=== PATIENT | female | born 1985 | race Caucasian/White ===

== ENCOUNTER 2023-09-30 03:58 | Day surgery (SDC) | payer BC, SELFPAY ==
[2023-09-27 15:28] VITALS: BMI 21.9
--- NOTE | 2023-09-27 15:32 | PC.NURSE ---
Report to the Outpatient Waiting Room, entrance under the green pavilion located off [facility], at time 0745 on date 09/30/23. Planned Procedure Time: 0945. Time changes happen often and if your time is changed the preop area will call you the afternoon before. - You and your visitor will be asked to self-screen and do not enter if you have any COVID symptoms. - A mask is optional within the hospital at this time. Patients may have clear liquids (water, carbonated beverages, clear teas, apple juice) until 3 hours prior to surgery with a maximum of 20 ounces. - No food from midnight until time of surgery Take the following medications with a SIP of water the morning of surgery: NONE DO NOT STOP ANY OF YOUR OTHER PRESCRIPTION MEDICATIONS PRIOR TO SURGERY ?EXCEPT THE FOLLOWING Medications to discontinue per physician: VITAMINS Date to take last dose: ALREADY STOPPED Please no make-up, nail belarusian, hairspray, perfume, deodorant, or body powder the day of surgery. No jewelry (including any body piercings) or valuables the day of surgery, leave them at home. Please take a shower or bath the night before, or the morning of, surgery with an antibacterial soap. Wear comfortable, loose fitting clothing. - Jewelry must be removed prior to entering the operating room. Rings and piercings that are not removed may be cut off. - The hospital will not accept responsibility for valuables. - Please leave all valuables, including medications, at home the day of surgery. If you are going home after surgery, a licensed trailer truck driver must drive you home. - NO public transportation without another adult if you receive anesthesia. - We recommend that an adult stay with you for 24 hours following discharge. - We also recommend that you do not drive, make important decision, drink alcoholic beverages, or take any drugs that were not prescribed by your health care provider for at least 24 hours after your discharge time. Follow any additional instructions given to you from your surgeon. If you or anyone in your household have experienced Covid symptoms in the past week, please notify your surgeon or the nurse liaison at the phone number below for possible testing. Telephone instructions given to PT - PRISCILA GUNDERSON and asked if any additional questions and then verbalized understanding. Patient advised to call surgeon office or pre surgery nurse liaison [phone] if any additional questions.
--- NOTE | 2023-09-28 07:58 | PM.IMHP ---
H&P: HPI History of Present Illness Date/Time: 09/28/23 07:58 Chief Complaint: pelvic organ prolapse, incontinence Narrative: this is a 38-year-old woman with a degree of pelvic organ prolapse as well as stress incontinence. She has decided upon surgical intervention Review of Systems Review of Systems: All systems reviewed & are unremarkable except as noted in HPI and below PMFSH Surgical History Surgical History History of hysteroscopy Family History Family History Father Alcohol abuse Cancer Diabetes mellitus Hypertension Grandparent Alcohol abuse Cancer Grandparent Cancer Social History Social History Smoking status: Never smoker Alcohol intake: current Drinks per week: 3 Substance use: never Substance use type: does not use Lack of Transportation: No Lack of Food: Never True Current Housing: I Have Housing Concerned About Future Housing: No Difficulty Paying Gas/Electric Bills: No Difficulty Paying for Meds: No Currently Unemployed: No Education: Master's Degree or Higher Difficulty w/ Childcare or Family Care: No Living arrangements: with family Gender identity (if verbalized by the patient): Female Spiritual care concerns: No Meds Home Medications and Allergies Home Medications Medication Instructions Recorded Confirmed Type multivitamin 1 tablet PO DAILY 06/22/23 09/27/23 History Allergies Allergy/AdvReac Type Severity Reaction Status Date / Time No Known Allergies Allergy Unverified 09/27/23 15:27 Exam Narrative: no acute distress normal breathing alert oriented x3 cystocele to hymenal ring with urethral mobility rectocele to introitus Assessment and Plan Assessment and plan (1) Cystocele with rectocele: Code(s): N81.10 - Cystocele, unspecified; N81.6 - Rectocele Status: Acute (2) WHITNEY (stress urinary incontinence, female): Code(s): N39.3 - Stress incontinence (female) (male) Status: Acute Plan plan for pelvic organ prolapse repair and urethral sling. Understands risks of bleeding, infection, damage to surrounding organs and damage to the urinary tract, vaginal mesh extrusion, urinary tract mesh erosion, obstructive voiding requiring secondary procedure, hip and leg pain, dyspareunia, recurrence of prolapse. We also discussed implications surrounding pelvic organ prolapse repair in young women. She agrees to proceed
[2023-09-30] VITALS (9 sets, daily range): BP systolic 89–124; BP diastolic 53–72; PULSE 50–68; RESP 10–16; TEMP 36.1–36.4; O2SAT 100
--- NOTE | 2023-09-30 07:16 | WPDHPUPDATE1 ---
History and Physical Update Update Date/Time: 09/30/23 07:16 History and Physical has been reviewed, including an updated exam of the patient. There are NO changes in the patient's condition. Risks, benefits, and alternatives have been discussed and questions answered. Patient agrees to proceed with procedure.
[2023-09-30] MEDS: LACTATED RINGERS 1,000 ML 30 ML IV CONT ×2 (08:15→09:39)
[2023-09-30] MEDS: SCOPOLAMINE 1.5 MG PATCH TRANSDERM (08:34)
--- NOTE | 2023-09-30 08:37 | P.PNAN_ITS ---
Anes - Initial Pre Proc Eval Procedure: Operation Date: 09/30/23 09:45 Proposed Procedures p Anterior and Posterior Repair, - Irving Caraballo MD s Urethral Sling - Irving Caraballo MD Date/Time: 09/30/23 08:37 Surgeon: Irving Caraballo MD Pre Op Diagnosis: cystocele with rectocele, stress incont Patient Data Age: 38 Gender: F Height: 1.7 m Weight: 64 kg Last Vital Signs Temp 36.4 C 09/30/23 08:29 Pulse 67 09/30/23 08:29 Resp 16 09/30/23 08:29 BP 124/72 09/30/23 08:29 Pulse Ox 100 09/30/23 08:29 O2 Del Method Room Air 09/30/23 08:29 Allergies Allergy/AdvReac Type Severity Reaction Status Date / Time No Known Allergies Allergy Unverified 09/30/23 08:18 Home Medications Medication Instructions Recorded Confirmed Type multivitamin 1 tablet PO DAILY 06/22/23 09/30/23 History docusate sodium 100 mg capsule 100 mg PO BID #40 caps 09/30/23 Rx (Colace) hydrocodone 5 mg-acetaminophen 325 1 tablet PO Q6H PRN pain #20 tabs 09/30/23 Rx mg tablet Patient hx anesthesia problems: none Family hx anesthesia problems: none Results Review: All pre-operative results and documents have been reviewed as part of the pre- operative evaluation. [facility] Surgical History Surgical History History of hysteroscopy Family History Family History Father Alcohol abuse Cancer Diabetes mellitus Hypertension Grandparent Alcohol abuse Cancer Grandparent Cancer Social History Social History Smoking status: Never smoker Alcohol intake: current Drinks per week: 3 Substance use: never Substance use type: does not use Lack of Transportation: No Lack of Food: Never True Current Housing: I Have Housing Concerned About Future Housing: No Difficulty Paying Gas/Electric Bills: No Difficulty Paying for Meds: No Currently Unemployed: No Education: Master's Degree or Higher Difficulty w/ Childcare or Family Care: No Living arrangements: with family Gender identity (if verbalized by the patient): Female Spiritual care concerns: No Anes - Eval Final PreProcedure Day of Procedure 09/30/23 08:37 Patient weight: normal Heart: regular rate and rhythm Lungs: clear to auscultation Airway: Mallampati scale class II Neurological: alert and oriented Last oral intake: >/= 8 hours ASA classification: II Emergent: no Anesthetic plan: proceed Anesthesia type and monitoring: general LMA and standard monitoring Results Review: All pre-operative results and documents have been reviewed as part of the pre- operative evaluation. Informed Consent: The patient's anesthetic plan and its attendant risks and benefits were discussed with the patient/family/POA. Questions were solicited and answers provided to the satisfaction of the patient/family/POA.
[2023-09-30] MEDS: ceFAZolin 2 GM/D5W 50 ML 2 GM/50 ML BAG IVPB (08:41)
[2023-09-30] MEDS: BUPIVACAINE/EPINEPHRINE 0.5% 50 ML VIAL 30 ML INFILTRATE (09:04)
--- NOTE | 2023-09-30 09:57 | W.PM.PROC2 ---
Procedure Note - Detailed Date of Procedure 09/30/23 Pre-op Diagnosis Rectocele Stress incontinence Post-op Diagnosis Same Procedure Performed Rectocele repair mid urethral sling cystoscopy Surgeon Irving Caraballo MD Anesthesia General Indications This is a female with confirm stress urinary incontinence. She has symptomatic prolapse as well. It is largely a rectocele. She has splinting and stool trapping. she desires surgical correction. She understands the risks of bleeding, infection, injury to the urinary tract, vaginal mesh extrusion, urinary tract mesh erosion, obstructive voiding requiring a secondary procedure, hip and leg pain, dyspareunia, inability to improve overactive bladder symptoms. She agrees to proceed. Description of Procedure She was correctly identified. Informed consent obtained. She was brought the operating room. She was given appropriate anesthesia. She was given appropriate perioperative antibiotics. A time-out performed. I placed Villarreal catheter. I placed a Sterling retractor. Examination revealed no significant cystocele. She had a rectocele just beyond the hymenal ring. I grasped the rectocele with Allis clamps. I infiltrated subcutaneous tissues with local mixed with epinephrine. Made a midline vaginal incision. I dissected out laterally and towards the apex taking great care not to injure the underlying rectum. I then performed a plication rectocele repair. I used interrupted 0 Vicryl sutures. There was excellent reduction of the rectocele. I took great care not to injure underlying rectum. I then trimmed minimal excess vaginal mucosa. I closed the vaginal mucosa with a running 2-0 Vicryl suture. There was excellent hemostasis. No perineal repair was required. No cystocele was required. i marked out the site of the inner thigh incisions. I anesthetized the skin and made those incisions. I anesthetized the anterior vaginal wall over the mid urethra. I made a 1 cm incision. I dissected out laterally taking great care not to injure the refilled vaginal wall. There was some bleeding from the vaginal wall incision. I passed the helical trocars. First on the left. Then on the right. I did this from the thigh incision towards the vaginal incision. The sling was connected to the trocars and brought out through the thigh incision. I tensioned the sling appropriately. I cut and the plastic sheaths. I then closed the incision with 2 0 Vicryl. On cystoscopy there is no tumors or surgical artifact. There was no surgical artifact in the urethra. I cut the excess sling material. Close incisions with glue. She was awakened and transferred to the PACU in stable condition. Implants Urethral sling Estimated Blood Loss -150.0 Drains No Packing No Pathology None sent Complications No immediate complications Condition Stable Disposition PACU
[2023-09-30] MEDS: oxyCODONE HCL (*CRX) 5 MG TAB IR PO ×2 (10:56→12:49)
--- NOTE | 2023-09-30 11:41 | SUR.PHASEII ---
DR. KENT NOTIFIED RE: MODERATELY SATURATED PERIPAD. PATIENT FELT DIZZY IN THE BATHROOM. TRANSPORTED BACK TO ROOM VIA WHEELCHAIR; NOW NO LONGER DIZZY. BP WNL. DR. KENT EN ROUTE TO SEE PATIENT.
--- NOTE | 2023-09-30 11:48 | SUR.PHASEII ---
DR. KENT TO EXAMINE PATIENT. OKAY'D FOR HER TO GO HOME.
[2023-09-30] MEDS: fentaNYL CITRATE INJ (*CRX) 100 MCG/2 ML VIAL 25 MCG IV PUSH (12:01)
== END 2023-09-30 12:50 | disposition home or self-care (01) ==
PROVIDERS: PCP Internal Medicine; Visit Provider Urology
PROC: (CPT 57260; principal; 2023-09-30 09:45)
PROC: (CPT 57250; 2023-09-30 09:45)
DX: N81.6 Rectocele (principal); N39.3 Stress incontinence (female) (male)
CPT/HCPCS: 57250; 57288; A9270; C1771; J0690; J1100; J2250; J2405; J2704; J3010; J7030; J7120

== ENCOUNTER 2024-03-08 08:19 | Outpatient (CLI) | payer BC, SELFPAY ==
[2024-03-08 13:52] LABS: Basophils Percent Auto 0.9 % (0.2-1.2); Eosinophils Absolute Auto 0.1 K/mm3 (0-0.3); Eosinophils Percent Auto 2.3 % (0-4.4); Hematocrit 41.3 % (37.0-47.0); Hemoglobin 13.3 g/dL (12.0-15.0); Immature Granulocyte Absolute 0.01 K/mm3 (0.00-0.031); Immature Granulocyte Percent A 0.2 % (0-0.5); Lymphocytes Absolute Auto 1.42 K/mm3 (0.9-3.2); Lymphocytes Percent Auto 33.3 % (18.3-44.2); Mean Corpuscular HGB Conc 32.2 g/dl (32-36); Mean Corpuscular Hemoglobin 31.1 pg (26-34); Mean Corpuscular Volume 96.5 fl (80-100); Mean Platelet Volume 11.1 fl (7.4-10.4); Monocytes Absolute Auto 0.4 K/mm3 (0.1-0.6); Monocytes Percent Auto 8.2 % (2.6-8.5); Neutrophils Absolute Auto 2.3 K/mm3 (1.3-6.7); Neutrophils Percent Auto 55.1 % (45.5-73.1); Platelet Count Result 219 k/mm3 (150-375); Red Blood Count 4.28 M/mm3 (4.2-5.4); Red Cell Distribution Width 13.2 % (11.5-14.5); White Blood Count 4.3 K/mm3 (4.5-10.0)
[2024-03-08 17:25] LABS: Alanine Aminotransferase 33 U/L (6-35); Albumin Level 4.4 g/dL (3.5-5.1); Alkaline Phosphatase 77 U/L (38-126); Anion Gap 9 mmol/L (4-12); Aspartate Amino Transferase 53 U/L (14-36); Bilirubin,Total 0.7 mg/dL (0.2-1.3); Blood Urea Nitrogen 13 mg/dL (7-17); Calcium 9.4 mg/dL (8.4-10.2); Carbon Dioxide 25 mmol/L (22-30); Chloride 105 mmol/L (98-107); Cholesterol 155 mg/dL (0-200); Estimated Glomerular Filt Rate > 60; Glucose 77 mg/dL (65-110); HDL Direct 77 mg/dL; Potassium 4.3 mmol/L (3.4-5.0); Sodium 139 mmol/L (137-145); Triglycerides 85 mg/dL (<150)
[2024-03-08 17:36] LABS: LDL Cholesterol Direct 67 mg/dL
== END 2024-03-08 08:20 | disposition home or self-care (01) ==
LOC: ANHGOSHLAB 08:20
PROVIDERS: PCP Internal Medicine; Visit Provider Nurse Practitioner
DX: Z13.220 Encounter for screening for lipoid disorders (principal); Z13.228 Encounter for screening for other metabolic disorders
CPT/HCPCS: 36415; 80053; 80061; 85025

== ENCOUNTER 2024-05-31 14:32 | Outpatient (CLI) | payer BC, SELFPAY ==
--- NOTE | ~2024-05-31 | MM_ITS ---
EXAMINATION: MM screening charu BI w flower HISTORY: Screening TECHNIQUE: Craniocaudal and mediolateral oblique 3-D tomosynthesis images were obtained and synthetic 2-D images were generated. CAD analysis was submitted and interpreted. COMPARISON: No prior mammogram is available for comparison at this institution. BREAST PARENCHYMAL COMPOSITION: Dense: The breasts are extremely dense, which lowers the sensitivity of mammography. FINDINGS: There is no evidence of suspicious mass, calcification, or architectural distortion to sugg est malignancy in either breast. There has been no suspicious interval change. IMPRESSION: 1. No mammographic evidence of malignancy. 2. Recommend routine screening mammography in one year. BI-RADS Category 1: Negative Reviewed, dictated and finalized at location B.
== END 2024-05-31 14:33 ==
LOC: MICIMG 14:33
PROVIDERS: PCP Internal Medicine; Visit Provider Obstetrics & Gynecology
DX: Z12.31 Encounter for screening mammogram for malignant neoplasm of breast (principal)
CPT/HCPCS: 77063; 77067

== ENCOUNTER 2025-03-08 08:54 | Outpatient (CLI) | payer BC, SELFPAY ==
[2025-03-08 12:25] LABS: Basophils Absolute Auto 0.1 K/mm3 (0.0-0.1); Eosinophils Absolute Auto 0.2 K/mm3 (0-0.3); Eosinophils Percent Auto 3.7 % (0-4.4); Hematocrit 36.3 % (37.0-47.0); Hemoglobin 11.5 g/dL (12.0-15.0); Immature Granulocyte Absolute 0.01 K/mm3 (0.00-0.031); Immature Granulocyte Percent A 0.2 % (0-0.5); Lymphocytes Absolute Auto 1.49 K/mm3 (0.9-3.2); Lymphocytes Percent Auto 36.5 % (18.3-44.2); Mean Corpuscular HGB Conc 31.7 g/dl (32-36); Mean Corpuscular Hemoglobin 30.7 pg (26-34); Mean Corpuscular Volume 97.1 fl (80-100); Mean Platelet Volume 10.1 fl (7.4-10.4); Monocytes Absolute Auto 0.4 K/mm3 (0.1-0.6); Monocytes Percent Auto 9.6 % (2.6-8.5); Platelet Count Result 251 k/mm3 (150-375); Red Blood Count 3.74 M/mm3 (4.2-5.4); Red Cell Distribution Width 13.3 % (11.5-14.5); White Blood Count 4.1 K/mm3 (4.5-10.0)
[2025-03-08 12:50] LABS: Alanine Aminotransferase 51 U/L (6-35); Albumin Level 4.4 g/dL (3.5-5.1); Alkaline Phosphatase 85 U/L (38-126); Anion Gap 9 mmol/L (4-12); Aspartate Amino Transferase 80 U/L (14-36); Blood Urea Nitrogen 13 mg/dL (7-17); Calcium 8.5 mg/dL (8.4-10.2); Carbon Dioxide 26 mmol/L (22-30); Chloride 99 mmol/L (98-107); Cholesterol 153 mg/dL (0-200); Estimated Glomerular Filt Rate > 60; Glucose 80 mg/dL (65-110); HDL Direct 66 mg/dL; Sodium 134 mmol/L (137-145); Triglycerides 69 mg/dL (<150)
[2025-03-08 13:00] LABS: LDL Cholesterol Direct 53 mg/dL
[2025-03-08 13:04] LABS: Vitamin D 25 Hydroxy 40.4 ng/mL
== END 2025-03-08 08:55 | disposition home or self-care (01) ==
LOC: ANHGOSHLAB 08:55
PROVIDERS: PCP Internal Medicine; Visit Provider Nurse Practitioner
DX: R74.8 Abnormal levels of other serum enzymes (principal); R53.83 Other fatigue; Z13.220 Encounter for screening for lipoid disorders; E55.9 Vitamin D deficiency, unspecified
CPT/HCPCS: 36415; 80053; 80061; 82306; 84443; 85025

== ENCOUNTER 2025-03-13 09:09 | Outpatient (CLI) | payer BC, SELFPAY ==
--- NOTE | ~2025-03-13 | US_ITS ---
EXAM: ABDOMEN ULTRASOUND HISTORY: R74.8 - Abnormal levels of other serum enzymes COMPARISON: None FINDINGS: LIVER: The liver is unremarkable in echogenicity and size. The portal vein is patent, demonstrating hepatopedal flow. The contour of the liver surface is smooth. GALLBLADDER: No stones are identified within the gallbladder, which is otherwise unremarkable. The stones are bulky and mobile. No gallbladder wall thickening or pericholecystic fluid. BILE DUCTS: Common bile duct measures 3.9mm. PANCREAS: Limited evaluation of the pancreas secondary to overlying bowel gas IMPRESSION: Limited evaluation of the pancreas secondary to overlying bowel gas. Otherwise, unremarkable sonographic evaluation of the right upper quadrant, as detailed above. Reviewed, dictated and finalized at location A.
== END 2025-03-13 09:10 | disposition home or self-care (01) ==
PROVIDERS: PCP Nurse Practitioner; Visit Provider Nurse Practitioner
DX: R74.8 Abnormal levels of other serum enzymes (principal)
CPT/HCPCS: 76705

== ENCOUNTER 2025-06-07 08:20 | Outpatient (CLI) | payer BC, SELFPAY ==
--- NOTE | ~2025-06-07 | MM_ITS ---
EXAMINATION: MM screening charu BI w flower HISTORY: Screening mammogram TECHNIQUE: Craniocaudal and mediolateral oblique 3-D tomosynthesis images were obtained and synthetic 2-D images were generated. CAD analysis was submitted and interpreted. COMPARISON: 05/31/2024 BREAST PARENCHYMAL COMPOSITION:Dense: The breasts are extremely dense, which lowers the sensitivity of mammography. FINDINGS: No suspicious mass, calcification, or architectural distortion are identified in either breast to suggest malignancy. There has been no suspicious interval change. IMPRESSION: No mammographic evidence of malignancy. Recommend routine screening mammography in one year. BI-RADS Category 1: Negative Reviewed, dictated and finalized at location .
--- OUTSIDE RECORDS SUMMARY | 2025-06-07 08:24 | XMS_ITS | Clinical Summary ---
Author Organization [facility] Address [address] [place] [id number] Care Team Providers Care Senior Corporate Recruiter Name Role Phone No, Physician Primary Care Provider [phone] Allergies No known active allergies Medications ibuprofen (ADVIL,MOTRIN) 600 mg tablet Take 400 mg by mouth every 6 (six) hours 09/07/2018 Active Colace 100 mg capsule Take 1 capsule (100 mg total) by mouth Active HYDROcodone-cira taminophen (NORCO) 5-325 mg per tablet Take 1 tablet by mouth every 6 (six) hours as needed for pain Active Active Problems No known active problems Family History Medical History Relation Name Comments Cancer Other Diabetes Other Hypertension Other Relation Name Status Comments Other Social History Tobacco Use Types Packs/Day Years Used Date Smoking Tobacco: Never Smokeless Tobacco: Never Tobacco Cessation:Counseling Given: Not Answered AUDIT-C Answer Date Recorded Q1: How often do you have a drink containing alc ohol? 2-3 times a week 04/09/2023 Q2: How many drinks containi ng alcohol do you have on a typical day when you are drinking? 1 or 2 04/09/2023 Q3: How often do you have si x or more drinks on one occasion? Never 04/09/2023 Personal Safety Answer Date Recorded Getting School Help Needed Not on file 10/06 Comments Unknown Sex and Gender Information Value Date Recorded Sex Assigned at Not on file Legal Sex Female 8:28 AM CDT Gender Identity Not on file Sexual Orientation Not on file Obstetrics History Last Filed Vital Signs Vital Sign Reading Time Taken Comments Blood Pressure 127/85 10/06/2023 8:52 AM ASSOCIATE RELATIONS SPECIALIST Pulse 93 10/06/2023 8:52 AM ASSOCIATE RELATIONS SPECIALIST Temperature 36.8 C (98.2 F) 10/06/2023 8:52 AM ASSOCIATE RELATIONS SPECIALIST Respiratory Rate 16 10/06/2023 8:52 AM ASSOCIATE RELATIONS SPECIALIST Oxygen Saturation 100% 10/06/2023 8:52 AM ASSOCIATE RELATIONS SPECIALIST Inhaled Oxygen Concentration - - Weight 66.1 kg (145 lb 11.2 oz) 10/06/2023 8:52 AM ASSOCIATE RELATIONS SPECIALIST Height 171.5 cm (5' 7.52) 10/06/2023 8:52 AM CS T Body Mass Index 22.47 10/06/2023 8:52 AM ASSOCIATE RELATIONS SPECIALIST Plan of Treatment Health Maintenance Due Date Last Done Comments Breast Cancer Screening-Mammogram 1983 Cervical Cancer Screening 1983 Depression Screening 1983 Hepatitis C Screening 1983 Varicella Vaccines (1 of 2 - 13+ 2-dose series) 1996 Hepatitis B Screening 2001 Regular Well Visit/Exam 18-64 2001 HPV Vaccines (1 - 3-dose SCDM series) 2010 Covid-19 Vaccine ( season) 2024 08/17/2021, 01/12/2021, 12/15/2020 Influenza Vaccine (#1) 2025 , 08/06/2019, 07/18/2018, Additional history exists DTaP/Tdap/Td Vaccine (3 - Td or Tdap) 07/06/2028 07/06/2018, 12/01/2015 Pneumococcal vaccine <65 Aged Out No longer eligible based on patient's age to complete this topic Insurance [employer] OOS BLUE ACCESS OOS Care Teams Senior Corporate Recruiter Relationship Specialty Start Date End Date No, Physician PCP - General 04/30/20
--- OUTSIDE RECORDS SUMMARY | 2025-06-07 08:24 | XMS_ITS | Clinical Summary ---
Author Organization [facility] Address [address] [place] [address] Care Team Providers Care Strip Cutter Name Role Phone Unavailable Primary Care Provider Unavailabl e Source Comments [facility],non-owned Affiliates and Associated Physician Practices is amultiple site organization consisting of ambulatory clinics and hospital sitesin [place], [place], [place] and [place]. This disclosure is being madepursuant to the Care Everywhere program and may not contain all information available regarding this patient. Last updated 18.[employer] Allergies No known active allergies Medications * Be aware that medications may not be up to date on this document. Alwaysverify current medications with the patient. No known medications Active Problems Problem Noted Date Diagnosed Date Cystocele with prolapse 04/01/2021 Resolved Problems Problem Noted Date Diagnosed Date Resolved Date Constipation 04/01/2021 04/29/2021 Family History Medical History Relation Name Comments CVA Maternal Grandfather Diabetes - Type 2 Maternal Grandfather Cancer - Breast Maternal Grandmother Depression Paternal Grandfather Relation Name Status Comments Maternal Grandfather Maternal Grandmother Paternal Grandfather Social History Tobacco Use Types Packs/Day Years Used Date Smoking Tobacco: Never Smokeless Tobacco: Never Alcohol Use Standard Drinks/Week Comments Yes 0 (1 standard drink = 0.6 oz pur e alcohol) 4 Comments No Sex and Gender Information Value Date Recorded Sex Assigned at Not on file Legal Sex Female 2:02 PM CDT Gender Identity Not on file Sexual Orientation Not on file Last Filed Vital Signs Vital Sign Reading Time Taken Comments Blood Pressure 120/83 06/18/2022 10:25 AM CDT Pulse 77 06/18/2022 10:25 AM CDT Temperature 36.6 C (97.9 F) 06/18/2022 10:25 AM CDT Respiratory Rate - - Oxygen Saturation 100% 06/18/2022 10: 25 AM CDT Inhaled Oxygen Concentration - - Weight 68.9 kg (151 lb 12.8 oz) 022 10:25 AM CDT Height 172.7 cm (5' 8) 06/18/2022 10:2 5 AM CDT Body Mass Index 23.08 06/18/2022 10:25 AM CDT Plan of Treatment Health Maintenance Due Date Last Done Comments LIPID TESTING 1983 MAMMOGRAM 1983 HIV SCREENING 1998 HEPATITIS C SCREENING 07/19/2001 DTAP/TDAP/TD VACCINES (1 - Tdap) 2002 HEPATITIS B VACCINE (1 of 3 - 19+ 3-dose series) 2002 HPV VACCINE (1 - 3-dose SCDM series) 2010 PAP SMEAR 04/03/2024 04/03/2021 COVID-19 VACCINE (3 - 2023-2 5 season) 2024 01/12/2021, 12/15/2020 DEPRESSION SCREENING 10/17/2024 INFLUENZA VACCINE (#1) 2025 9, 07/18/2018 ZOSTER VACCINE (1 of 2) 2033 HIB VACCINE Aged Out No longer eligi ble based on patient's age to complete this topic MENINGOCOCCAL (Group B) VACCINE SHARED DECISION-MAKING Aged Out No longer eligible based on patient's age to complete this topic MENINGOCOCCAL GROUPS A/C/Y/W VACCINE Aged Out No longer eligible b ased on patient's age to complete this topic PNEUMOCOCCAL VACCINE Aged Out No long er eligible based on patient's age to complete this topic Insurance [employer]
--- OUTSIDE RECORDS SUMMARY | 2025-06-07 08:24 | XMS_ITS | Encounter Summary ---
Author Organization [facility] Address [address] [place] [address] Care Team Providers Care Auxiliary Operator Name Role Phone Unavailable Primary Care Provider Unavailabl e Encounter Details Date Type Department Care Team (Late st Contact Info) Description 03/10/2023 Lab Requisition [facility] - DermPath Lab [address] [place] [id number] Angelina Hirsch MD [address] [facility] [address] [place] [address] Social History Tobacco Use Types Packs/Day Years Used Date Smoking Tobacco: Never Smokeless Tobacco: Never Alcohol Use Standard Drinks/Week Comments Yes 0 (1 standard drink = 0.6 oz pur e alcohol) 4 Comments No Sex and Gender Information Value Date Recorded Sex Assigned at Not on file Legal Sex Female 2:02 PM CDT Gender Identity Not on file Sexual Orientation Not on file documented as of this encounter Plan of Treatment Not on file documented as of this encounter Procedures Procedure Name Priority Date/Time Associated Diagnosis Comments DERMATOPATHOLOGY Routine 03/10/2023 9:08 AM CDT documented in this encounter Results * DERMATOPATHOLOGY (03/10/2023 9:08 AM CDT) Case Report Dermatopathology Report Case: [id number] Authorizing Provider: Angelina Hirsch MD Collected: 03/10/2023 09:08 AM Ordering Location: [facility] Derm[facility] Lab Received: 03/10/2023 01:50 PM Pathologist: Antonia Jeong MD Specimen: Skin, left lat brow 3 4:06 PM T DERMATOPATHOLOGY LABORATORY Final Diagnosis Specimen A. SKIN, left lat brow: SEBORRHEIC KERATOSIS, IRRITATED AND INFLAMED (L82.0) 3 4:06 PM T DERMATOPATHOLOGY LABORATORY at 1606 CDT Clinical History R/O: SK 3 4:06 PM T DERMATOPATHOLOGY LABORATORY Gross Description Specimen A: Received is one formalin filled container labeled with the patient's name and designated left lat brow. The specimen consists of a shave biopsy measuring [id number]. Jar 0. 3 4:06 PM T DERMATOPATHOLOGY LABORATORY Microscopic Description Specimen A. SKIN, left lat brow: Sections show acanthosis, papillomatosis, hyperkeratosis, and squamous eddies. There is a lymphohistiocytic infiltrate within the papillary dermis. 3 4:06 PM T DERMATOPATHOLOGY LABORATORY Disclaimer An external and internal positive and negative controls are appropriate for the histochemical, immunohistochemical and immunofluorescence stain(s) in this case (if any), except where stated explicitly. The performance characteristics of the stain(s) cited in this report were developed and its performance characteristic determined by the Dermatopathology Laboratory at [facility], directed by Dr. Martha Jeong. These tests need not be, and therefore are not, approved by the [place] Food and Drug Administration. The tests are used for clinical purposes. Billing Codes Specimen Charges Stain Charges 63031 1 3 4:06 PM CDT DERMATOPATHOLOGY LABORATORY Embedded Images 3 4:06 PM CDT DERMATOPATHOLOGY LABORATORY Pathology/Cytolo gy TISSUE SPECIMEN FROM SKIN / Unknown 03/10/2023 9:08 AM CDT 03/10/2023 1:50 PM CDT us Angelina Hirsch MD LAB - PATHOLOGY/CYTOLOGY ORD ERABLES Final Result DERMATOPATHOLOGY LABORATORY [facility] - Department of Dermatology [address], [address] [phone] documented in this encounter Visit Diagnoses Not on filedocumented in this encounter
--- OUTSIDE RECORDS SUMMARY | 2025-06-07 08:24 | XMS_ITS | Clinical Summary ---
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 30 Tablet 3 09/07/2018 Active linaCLOtide (LINZESS) 145 mcg capsule Take 1 Capsule (145 mcg) by mouth daily before breakfast. 30 Capsule 6 04/30/2020 Active Active Problems Problem Noted Date Diagnosed Date (spontaneous vaginal delivery) 09/05/2018 AMA (advanced maternal age) multigravida 35+, second trimester 03/06/2018 4/ - Girl, PPH of 600cc (cytotec/methergine), keep IV in until this PM, manual placenta extraction(ancef x2) 01/16/2016 Resolved Problems Problem Noted Date Diagnosed Date Resolved Date Encounter for induction of labor 09/05/2018 09/05/2018 EIL, AROM 1215, s/p FB, cyto nohemi, Cervidil, h/o resolved previa, GBS neg, O+ 01/14/2016 016 Immunizations Immunization Administration Dates Next Due (ADACEL/BOOSTRIX)(10 YR UP) TDAP VACCINE, 0.5ML, IM 07/06/2018 (INFANRIX)(6 WKS-6 YRS) DIPT HERIA, TETANUS TOXOIDS, AND ACCELLULAR PERTUSSIS VACCINE (DTAP), 0.5 ML IM 12/01/2015 (SPIKEVAX) (12 YRS UP PRIMAR Y SERIES) COVID-19 VACCINE - MRNA-1273(PF) 100 MCG/0.5 ML IM SUSP 01/12/2021,12/15/2020 INFLUENZA VACCINE QUADRIVALENT 6 MOS UP PF IM Influenza Seasonal Unspecified Formulation IM Family History Medical History Relation Name Comments Hypertension Father Breast Cancer Maternal Grandmother Healthy Mother Colon Cancer Neg Hx Ovarian Cancer Neg Hx Relation Name Status Comments Father Alive Maternal Grandmother Mother Alive Social History Tobacco Use Types Packs/Day Years Used Date Smoking Tobacco: Never Smokeless Tobacco: Never Alcohol Use Standard Drinks/Week Comments Yes 0 (1 standard drink = 0.6 oz pur e alcohol) occasional Comments No Sex and Gender Information Value Date Recorded Sex Assigned at Not on file Legal Sex Female 10:32 AM LEAD MINER Gender Identity Not on file Sexual Orientation Not on file Occupation Industry Job Start Date Job End Date Stay at home mom Not on file Not on file Not on file Last Filed Vital Signs Vital Sign Reading Time Taken Comments Blood Pressure 116/74 04/03/2021 9:12 AM CDT Pulse 64 09/07/2018 7:26 AM LEAD MINER Temperature 36.4 C (97.6 F) 09/07/2018 7:26 AM LEAD MINER Respiratory Rate 16 09/07/2018 7:26 AM LEAD MINER Oxygen Saturation 100% 09/07/2018 7:26 AM LEAD MINER Inhaled Oxygen Concentration - - Weight 70.8 kg (156 lb) 04/03/2021 9:12 AM CDT Height 172.7 cm (5' 8) 04/03/2021 9:12 AM CDT Body Mass Index 23.72 04/03/2021 9:12 AM CDT Plan of Treatment Health Maintenance Due Date Last Done Comments HPV VACCINES (1 - 3-dose series) 1998 HEPATITIS B VACCINES (1 of 3 - 19+ 3-dose series) 2002 BREAST CANCER SCREENING 2023 PAP SMEAR 04/03/2024 04/03/2021, 05/30/2017 COVID-19 Vaccine ( season) 2024, 12/15/2020 INFLUENZA VACCINE (#1) 2025 08/06/2019, 2017 CERVICAL CANCER SCREENING 04/03/2026 HPV/Cotest (21-29) 04/03/2026 04/03/2021, 05/30/2017 HPV/Cotest (30-65) 04/03/2026 04/03/2021, 05/30/2017 DTAP/TDAP/TD VACCINES (3 - Td or Tdap) 07/06/2028, 12/01/2015 Procedures Procedure Name Priority Date/Time Associated Diagnosis Comments CERV/VAG CYTO AGE BASED SCREEN PAP Routine 04/03/2021 9:20 AM CDT Well woman exam with routine gynecological exam from Last 3 Months or Most Recently Relevant to Health Maintenance Results * CERV/VAG CYTO AGE BASED SCREEN PAP (04/03/2021 9:20 AM CDT) COMMENT (PAP): [facility] Comment: This order for age-based cervical cancer and STI screening follows ACOG guidelines(PB 168, 140, ZAP130). See individual assays for performing site location. CLINICAL INFORMATION [facility] Comment:SCREENING LAST MENSTRUAL PERIOD [facility] Comment:INFORMATION NOT PROV IDED PREV PAP: [facility] Comment:INFORMATION NOT PROV IDED PREV BX: [facility] Comment:INFORMATION NOT PROV IDED SOURCE [facility] Comment:Endocervix ADEQUACY: [facility] Comment: Satisfactory for evaluation. Endocervical/transformation zone component present. Age and/or menstrual status not provided PAP INTERP [facility] Comment:Negative for intraep ithelial lesion or malignancy. COMMENT [facility] Comment: This Pap test has been evaluated with computer assisted technology. BUFFING MACHINE TENDER: [facility] Comment: JIM, CT(ASCP) CT screening location: [place] [address] [address] EXPLANATORY NOTE [facility] Comment: EXPLANATORY NOTE: The Pap is a screening test for cervical cancer. It is not a diagnostic test and is subject to false negative and false positive results. It is most reliable when a satisfactory sample, regularly obtained, is submitted with relevant clinical findings and history, and when the Pap result is evaluated along with historic and current clinical information. HPV E6/E7 Not Detected Not Detected [facility] Comment: Methodology: [employer]-Mediated Amplification This assay detects E6/E7 viral messenger RNA (mRNA) from 14 high-risk HPV types (16,18,31,33,35,39,45,51,52,56,58,59,66,68). The analytical performance characteristics of this assay have been determined by [facility]. The modifications have not been cleared or approved by the FDA. This assay has been validated pursuant to the CLIA regulations and is used for clinical purposes. For additional information, please refer to http://education.[employer]/faq/POH522d3 (This link if provided for information/ educational purposes only.) Test Performed at: [facility] [id number] [place] [address] Jayson Momin D.O., MPH Genital SWAB OF ENDOCERVIX / Unknown 04/03/2021 9:20 AM CDT Reese Kennedy MD PATHOLOGY/CYTOLOGY ORDERABLES Final Result Performing Organization Address City/State/[facility] Co de Phone Number [address] [address] from Last 3 Months or Most Recently Relevant to Health Maintenance Insurance * Guarantor: Priscila Gunderson Account Type Relation to Patient Date of Phone Billing Address Personal/Family Self 1985 [phone] (Work) [address] [place] [address] [facility] BLUE ACCESS/TRUE BLUE PPO * Guarantor: Ravanelli, Priscila A Account Type Relation to Patient Date of Phone Billing Address Personal/Family Self 1985 [phone] [id number] (Work) [address] [place] [address] [employer] Commercial Advance Directives For more information, please contact: [phone] * Full Code (Latest Code Status on File) Date Activated Date Inactivated Comments 09/05/2018 10:30 PM 09/07/2018 3:52 PM * Full Code Date Activated Date Inactivated Comments 09/05/2018 1:11 AM 09/05/2018 10:30 PM * Full Code Date Activated Date Inactivated Comments 06/30/2017 6:02 AM 06/30/2017 10:45 AM * Full Code Date Activated Date Inactivated Comments 01/16/2016 12:31 PM 01/18/2016 3:06 PM * Full Code Date Activated Date Inactivated Comments 01/14/2016 4:34 PM 01/16/2016 12:31 PM
== END 2025-06-07 08:21 | disposition home or self-care (01) ==
LOC: CHSIMG 08:22
PROVIDERS: PCP Nurse Practitioner; Visit Provider Obstetrics & Gynecology
DX: Z12.31 Encounter for screening mammogram for malignant neoplasm of breast (principal)
CPT/HCPCS: 77063; 77067